=== PATIENT | male | born 1990 | race Hispanic/Latino ===

== ENCOUNTER 2024-07-05 11:00 | Emergency (ER) | payer SELFPAY ==
[2024-07-05 11:05] VITALS: BP 135/67
[2024-07-05 11:06] VITALS: BMI 33.3
[2024-07-05 11:07] VITALS: BP 135/67
--- NOTE | 2024-07-05 11:16 | ED.GENMED ---
History of Present Illness
General
Chief Complaint: Seizure
Source: patient and ambulance crew
Exam Limitations: none
Time Seen by Provider: 07/05/24 11:13
Nursing documentation reviewed up to this point in time: agreed with
History of Present Illness
History of Present Illness:
Patient is a 33-year-old male with past medical history of seizures drug abuse in the past on Suboxone presents to the ER for evaluation of seizure. Patient was at work and apparently had 2 grand mal seizures witnessed by coworker. Patient was
incontinent of urine. Patient's sugar was found to be 115. Patient presents awake alert he reports has a history of seizures since he was age 14. He reports his seizures were felt to be caused by drug abuse. Patient used cocaine and other
opiates. He is followed by a neurologist in [facility] He reports his last seizure was 1 year ago and he only has seizure when he uses drugs. He denies any recent history of opiate abuse but did take an Adderall last night.
He reports he typically does feel dizzy prior to having a seizure and did this prior to seizure today. He is prescribed Suboxone by [facility] and denies any other illicit drug use other than his nonprescribed Adderall.
Patient has no current complaints. He denies headache nausea vomiting chest pain shortness of breath. He denies any oral laceration/tongue injury .
He denies alcohol use.
He does smoke cigarettes.
Review of Systems
Review of Systems
Allergies reviewed?: Yes
All Other Systems: ROS reviewed and negative except as documented in HPI and ROS
Constitutional: Reports no symptoms; Denies fever, fatigue or chills
EENT: Reports no symptoms
Cardiac: Reports no symptoms
ABD/GI: Reports no symptoms
: Reports no symptoms
Musculoskeletal: Reports no symptoms
Skin: Reports no symptoms
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
Psychiatric: Reports no symptoms
Phy Exam
General Physical Exam
General Presentation: no apparent distress
General age: appears stated age
General Skin: warm and dry
General Habitus: normal
General Hydration: appears well hydrated
ENT Exam
ENT Exam: EOMI, neck supple and other (no oral laceration /abrasion)
Eye Exam
Eye Exam: PERRL and EOMI
Eye Exam General: PERRL: bilateral and EOM intact: bilateral
Pupil Exam: Bilateral: round and reactive
Course
Orders/Labs/Results
Orders:
Orders
07/05/24 11:06
Electrocardiogram (*1) Urgent
Reason for Study: Vertigo / Dizzy
EKG- Treatment ONCE
07/05/24 11:12
Complete Blood Count/With Diff Urgent
Comprehensive Metabolic Panel Urgent
07/05/24 11:18
CT Head W/o Iv Contrast Urgent
Comment:
Reason For Exam: seizure
Abnormal Lab Results
07/05/24
11:12
Hgb 19.6 H g/dL
(13.0-18.0)
Hct 57.2 H %
(39.0-52.0)
MCV 94.4 H fL
(80.0-94.0)
MCH 32.3 H pg
(27.0-31.0)
Abs Immat Gran (auto) 0.1 H 10^3/uL
(0-0.05)
Immature Gran % 1.6 H %
(0-0.5)
Lymphocytes % 16.5 L %
(20.5-51.1)
Carbon Dioxide 21 L mmol/L
(22-30)
BUN 8 L mg/dl
(9-20)
Glucose 122 H mg/dl
(70-99)
Total Bilirubin 1.4 H mg/dl
(0.2-1.3)
ALT 74 H U/L
(0-50)
07/05/24 11:12
02/03/25 11:12
Vital Signs
Initial and Last Documented VS:
Initial Vital Signs
Pulse Resp BP
123 11 135/67
07/05/24 11:05 07/05/24 11:05 07/05/24 11:05
Last Documented Vital Signs
Temp Pulse Resp BP Pulse Ox
99.4 F 118 16 135/67 95
07/05/24 11:07 07/05/24 11:30 07/05/24 12:00 07/05/24 11:07 07/05/24 11:30
Clearing Distribution Clerk consulted with Physician
Clearing Distribution Clerk consulted with physician?: Yes
Name of Physician Consulted: DR Heaton
MDM/Problems Addressed
Differential Diagnosis Includes:
Not limited to seizure, ingestion of drug
MDM/Problems Addressed:
Patient presents to the ER for evaluation after seizures. He has a history of drug abuse and seizures were felt to be from drug abuse. He is followed by neurologist. He admits to using Adderall last night and he is on Suboxone and took a Suboxone
this morning. He only slept 4 hours and reports typically in the past seizures were caused from taking an illicit substance. He reports his Adderall is not prescribed. Patient typically gets dizzy prior to the seizure activity and did have
similar symptoms prior to today seizures. He has no headache. On exam he is awake alert he is able to give good history. He was incontinent of urine but had no oral lip or tongue laceration. He was mildly tachycardic however no acute distress.
He has a normal neurologic exam. CT head negative.
Patient initially stated to the nurse that he wanted to sign out against medical advice however work up Was complete including negative CT head. Requesting to go home and at this time is stable for discharge home. Given the fact the patient has a
history of seizures from illicit drug use/drug abuse in the past and he admitted to taking Addera which is not prescribed( possible cause of seizure ). Case reviewed with ED physician. Patient stable for discharge home with f/u by his neurologist
Chronic conditions affecting care:
seizures in past, drug abuse on Suboxone
*Radiology
Radiology exam reviewed: radiology read reviewed
*Pulse Oximetry
Patient hypoxic: no
*EKG
Interpreted by ED Provider?: Yes
Heart Rate: 117
Rate: tachycardiac
Ischemia: non-specific ST changes
*Critical Care Note
Total Time (30-74mins, 75-104mins- exclusive of procedures): Not Applicable
ED Attending Note
-
Portions of this chart may have been created with voice recognition software.� Occasional wrong word or��sound alike� substitutions may have occurred due to the inherent limitations of voice recognition software.
Discharge Plan
Departure
Patient Disposition: Home (Routine Discharge)
Date of Disposition: 07/05/24
Time of Disposition: 12:14
Patient with high blood pressure during this ER visit?: Yes
Condition: Fair
Covid-19: Not Applicable
Discharge Problem:
Seizure
Instructions: Seizures, Adult (DC), BLOOD PRESSURE
Referrals:
UNKNOWN - PT DOES,NOT KNOW [Family Provider] -
Activity Restrictions/Additional Instructions:
As discussed please follow-up with your neurologist for further reevaluation. Return if any worsening of symptoms. You are given a copy of your blood work please review your blood work results with your family doctor.
Interventions
Interventions:
*Risk Screen - Suicide Last Done: 07/05/24 11:10
*General Assessment Last Done: 07/05/24 11:10
*Neglect/Abuse Screening Last Done: 07/05/24 11:10
ED- Fall Risk Assessment Last Done: 07/05/24 12:26
*ED COVID-19 Vaccine History Last Done: 07/05/24 11:09
*Nursing Disposition Last Done: 07/05/24 12:26
ED- Cardiac Assessment Last Done: 07/05/24 11:11
ED- Neurological Assessment Last Done: 07/05/24 11:11
ED- Pulmonary Assessment Last Done: 07/05/24 11:11
Discharge Date and Time
Discharge Date/Time: 07/05/24 12:35
Print Language: TUNISIAN
[2024-07-05 11:26] LABS: % Basophils 0.9 % (0-2); % Eosinophils 3.4 % (0-6); % Immature Granulocytes 1.6 % (0-0.5); % Lymphocytes 16.5 % (20.5-51.1); % Neutrophils 70.6 % (42.2-75.2); Absolute Basophils 0.1 10^3/uL (0-0.2); Absolute Eosinophils 0.3 10^3/uL (0-0.7); Absolute Immature Granulocytes 0.1 10^3/uL (0-0.05); Absolute Lymphocytes 1.5 10^3/uL (1.2-3.4); Absolute Monocytes 0.6 10^3/uL (0.1-0.6); Absolute Neutrophils 6.2 10^3/uL (1.4-6.5); Hematocrit 57.2 % (39.0-52.0); Hemoglobin 19.6 g/dL (13.0-18.0); Mean Corp Hgb Conc. 34.3 g/dL (33.0-37.0); Mean Corpuscular Hgb 32.3 pg (27.0-31.0); Mean Corpuscular Volume 94.4 fL (80.0-94.0); Mean Platelet Volume 9.5 fL (7.4-10.4); Nucleated Red Blood Cells % 0 % (-); Platelet Count 322 10^3/uL (130-400); Red Blood Cell Count 6.06 10^6/uL (4.70-6.10); Red Cell Dist. Width 13.2 % (11.5-14.5); White Blood Cell Count 8.8 10^3/uL (4.8-10.8)
[2024-07-05 11:45] LABS: ALT (SGPT) 74 U/L (0-50); AST (SGOT) 49 U/L (17-59); Alkaline Phosphatase 39 U/L (38-126); Blood Urea Nitrogen 8 mg/dl (9-20); Calcium 9.7 mg/dl (8.4-10.2); Carbon Dioxide 21 mmol/L (22-30); Chloride 103 mmol/L (98-107); Estimated Creatinine Clearance > 125 ml/min; Glucose 122 mg/dl (70-99); Potassium 4.9 mmol/L (3.5-5.1); Sodium 138 mmol/L (135-145); Total Bilirubin 1.4 mg/dl (0.2-1.3); Total Protein 7.9 g/dl (6.3-8.2); eGFR > 60.00
== END 2024-07-05 12:35 | disposition home or self-care (01) ==
LOC: EMR 11:00
PROVIDERS: EMERGENCY PHYSICIAN Student in an Organized Health Care Education/Training Program
DX: R56.9 Unspecified convulsions (principal); F17.210 Nicotine dependence, cigarettes, uncomplicated; F19.90 Other psychoactive substance use, unspecified, uncomplicated; Z79.891 Long term (current) use of opiate analgesic
CPT/HCPCS: 99284; 70450; 80053; 85025; 93005